=== PATIENT | male | born 2000 | race Caucasian/White ===

== ENCOUNTER 2021-07-08 08:02 | Emergency (ER) | payer OTHER ==
[2021-07-08 08:48] LABS: EOSINOPHIL 1.4 % (0-5); HCT 44.8 % (42.0-52.0); HGB 15.3 g/dl (13.2-18.0); LYMPHOCYTE 27.7 % (15-48); MCH 29.8 pg (25.0-31.0); MCHC 34.2 g/dL (32.0-36.0); MCV 87.3 fL (78.0-100.0); MONOCYTE 10.2 % (0-12); MPV 9.3 fL (6.0-9.5); NEUTROPHIL 59.4 % (41-80); NRBC 0; PLT 296 K/uL (150-400); RBC 5.13 M/uL (4.70-6.00); RDW 12.7 % (11.5-14.0); WBC 7.2 K/uL (4.0-10.5)
[2021-07-08 09:11] LABS: BILIRUBIN - TOTAL 0.3 mg/dL (0.2-1.0); BUN/CREAT RATIO (CALC) 11.6 RATIO; CREATININE 0.95 mg/dL (0.67-1.17); GLOBULIN (CALCULATION) 3.3 g/dL; POTASSIUM 4.2 mmol/L (3.5-5.1); TOTAL PROTEIN 7.3 g/dL (6.4-8.2)
== END 2021-07-08 11:25 | disposition home or self-care (01) ==
LOC: FER 08:02
PROVIDERS: Emergency Medicine
DX: R07.89 Other chest pain (principal); M94.0 Chondrocostal junction syndrome [Tietze]; R94.5 Abnormal results of liver function studies; I10 Essential (primary) hypertension; Z88.0 Allergy status to penicillin; Z79.899 Other long term (current) drug therapy
CPT/HCPCS: 36415; 71045; 80053; 84484; 85025; 93005; J1885